=== PATIENT | male | born 1965 | race Caucasian/White ===

== ENCOUNTER 2019-06-16 17:17 | Emergency (ER) | payer OTHER ==
[2019-06-16 17:29] VITALS: TEMP 97.9; BMI 25.7
[2019-06-16 18:36] LABS: INR 1.16 (0.82-1.09)
[2019-06-16 18:38] LABS: ALBUMIN 4.3 g/dl (3.4-5.0); BILIRUBIN,TOTAL 1.4 mg/dl (0.2-1); CALCIUM 9.3 mg/dl (8.5-10)
[2019-06-16 18:41] LABS: BASO % 0.3 % (0-2.0); EOS % 1.3 % (0-4.5); HEMATOCRIT 47.9 % (35.4-49); HEMOGLOBIN 15.6 GM/dl (11.7-16.9); LYMPH % 14.9 % (8-40); MCH 29.7 pg (25.7-33.7); MCHC 32.7 g/dl (32.0-35.9); MEAN CELL VOLUME 90.8 fl (80-96); MEAN PLT VOLUME 8.8 fl (7.5-11.1); MONO % 5.2 % (3.8-10.2); NEUT % 78.3 % (42.8-82.8); PLATELET COUNT 233 K/MM3 (134-434); RBC 5.27 M/mm3 (4.00-5.60); WHITE BLOOD COUNT 8.8 K/mm3 (4.0-10.8)
[2019-06-16 18:54] VITALS: BP 104/65; PULSE 65
--- NOTE | 2019-06-16 19:01 | PDOC ---
Documentation entered by Mikayla Gross SCRIBE, acting as scribe for Beto Oconnor MD. Beto Oconnor MD: This documentation has been prepared by the scribe, Mikayla Sauceda SCRIBE, under my direction and personally reviewed by me in its entirety. I confirm that the documentation accurately reflects all work, treatment, procedures, and medical decision making performed by me. History of Present Illness - General Chief Complaint: Syncope/Near Syncope Stated Complaint: NEAR SYNCOPE History Source: Patient Exam Limitations: No Limitations - History of Present Illness Initial Comments: 06/16/19 17:54 The patient is a 54 year old male with a significant PMH of HLD, von wulenbrons disease and afib (2 ablations), who presents to the ED for evaluation of pre-sy ncopal episode post colonoscopy (done at [place]). Patient reports that after having a colonoscopy this afternoon, he went out to eat with his at which point upon eating he began to experience jaw pain and shortly after, he felt diaphoretic and states that he wasn't able to notice anyone around him. According to his , the patient "b;anked out" and was having involuntary movements. The patient states that this episode lasted a few minutes. Patient reports that for his colonoscopy, he was given 2 clotting factors (Amacar and DDAVP), per usual. The patient denies chest pain, shortness of breath, headache and dizziness. Denies fever, chills, nausea, vomiting, diarrhea and constipation. Denies dysuria, frequency, urgency and hematuria. Allergies: NKA Past surgical history: 2 ablations, Cervical spine surgery Social history: No reported hx of tobacco use, alcohol use or illicit drug use. 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 [facility] Past History - Past Medical History Allergies/Adverse Reactions: Allergies Allergy/AdvReac Type Severity Reaction Status Date / Time No Known Allergies Allergy Verified 06/16/19 17:23 Home Medications: Ambulatory Orders Atorvastatin Ca [Lipitor] 20 mg PO HS 06/16/19 Review of Systems - Review of Systems Able to Perform ROS?: Yes Comments:: 06/16/19 18:01 CONSTITUTIONAL: (+) chills Absent: fever, no fatigue EYES: Absent: visual changes ENT: Absent: ear pain, no sore throat CARDIOVASCULAR: Absent: chest pain, no palpitations RESPIRATORY: Absent: cough, no SOB GI: Absent: abdominal pain, no nausea, no vomiting, no constipation, no diarrhea GENITOURINARY: Absent: dysuria, no frequency, no hematuria MUSKULOSKELETAL: Absent: back pain, no arthralgia, no myalgia SKIN: Absent: rash NEURO: Absent: headache *Physical Exam - Physical Exam 06/16/19 18:08 GENERAL: Well-appearing, well-nourished. No apparent distress. HEENT: Normocephalic, atraumatic. PERRL, EOM intact. CARDIOVASCULAR: Normal S1, S2. Regular rate and rhythm. PULMONARY: Clear to auscultation bilaterally. ABDOMEN: Soft, non-distended, non-tender. EXTREMITIES: Normal ROM in all four extremities. No gross deformities. SKIN: Warm, dry. No rash NEUROLOGICAL: No focal neurological deficits. ED Treatment Course - LABORATORY CBC & Chemistry Diagram: 06/16/19 18:15 06/16/19 18:15 Medical Decision Making - Medical Decision Making 06/16/19 18:02 Vasovagal episode approximately 1 hour after undergoing colonoscopy. Had stopped to eat at a restaurant, felt pain while chewing in both jaws, became diaphoretic, confused, symptoms lasted a minute or so, then resolved completely. No chest pain, shortness of breath, lightheadedness or dizziness, or loss of consciousness. Received propofol and pro-clotting drugs DDAVP and epsilon aminocaproic acid before the procedure because of von Willebrand's disease. Th ere was no excessive bleeding. Past history significant for von Willebrand's, A. fib status post ablation x2, without recurrence, elevated cholesterol. Denies [place], CVA, TIA, PVD, diabetes. Physical exam: Normal vital signs. Alert and oriented no acute distress cheerful and cooperative. Neurological intact. Cardiac and pulmonary exams normal. Gait stable and unimpaired. Impression: Vasovagal near syncope. The jaw pain is probably part of the syndrome, but rule out ACS. EKG normal sinus rhythm 63/min. Incomplete right bundle branch block. No ST-T wave changes that would suggest ischemia. No old EKG for comparison. CBC, chemistries, and cardiac enzymes negative. Possibility of vasovagal near syncope was discussed with the patient. 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 Return to emergency room if there are any further symptoms, such as experienced earlier today or including chest pain, shortness of breath, abdominal pain, nausea, lightheadedness or dizziness, shortness of breath. 06/16/19 18:32 06/16/19 19:11 Orthostatics failed to show significant dehydration. Patient asymptomatic at discharge with to follow-up as recommended. Discharge - Discharge Information Problems reviewed: Yes Clinical Impression/Diagnosis: Vasovagal episode Condition: Improved Disposition: HOME - Admission No - Follow up/Referral - Patient Discharge Instructions Patient Printed Discharge Instructions: DI for Syncope in Adults (Fainting) Additional Instructions: If symptoms recur or any other symptoms develop, especially chest pain, shortness of breath, nausea, perspiration, lightheadedness or dizziness, return to hospital immediately. Otherwise follow-up with primary physician. - Post Discharge Activity
--- NOTE | 2019-06-17 11:29 | EKG ---
Test Reason : Blood Pressure : / mmHG Vent. Rate : 063 BPM Atrial Rate : 063 BPM P-R Int : 138 ms QRS Dur : 106 ms QT Int : 426 ms P-R-T Axes : 051 002 043 degrees QTc Int : 435 ms NORMAL SINUS RHYTHM INCOMPLETE RIGHT BUNDLE BRANCH BLOCK BORDERLINE ECG NO PREVIOUS ECGS AVAILABLE Confirmed by MD Roldan, Irving ([id number]) on 06/17/2019 11:29:20 AM Referred By: DR GREY Confirmed By:Irving Montilla MD
== END 2019-06-16 19:15 | disposition home or self-care (01) ==
LOC: FER 17:17
DX: R42 Dizziness and giddiness (principal); D68.0 Von Willebrand disease
CPT/HCPCS: 36415; 80053; 82550; 84484; 85025; 85610; 93005; 99284-25